=== PATIENT | female | born 1960 | race African-American/Black ===

== ENCOUNTER 2023-01-04 16:52 | Emergency (ER) | payer OTHER ==
[~2023-01-04] VITALS: Ht 154.9 cm; Wt 82.0 kg
[2023-01-04 17:02] VITALS: BP 130/73; PULSE 68; RESP 16; O2SAT 97
[2023-01-04] MEDS ORDERED: ACETAMINOPHEN 325MG TABLET PO ONE (21:45)
[2023-01-04] MEDS ORDERED: T3 PO (21:53)
[2023-01-04 22:06] VITALS: TEMP 98
== END 2023-01-04 22:26 | disposition home or self-care (01) ==
LOC: ER 17:40
DX: S52.501A Unspecified fracture of the lower end of right radius, initial encounter for closed fracture (principal); Z00.00 Encounter for general adult medical examination without abnormal findings; Z98.890 Other specified postprocedural states; W01.0XXA Fall on same level from slipping, tripping and stumbling without subsequent striking against object, initial encounter; Y93.89 Activity, other specified; Y92.89 Other specified places as the place of occurrence of the external cause; Y99.8 Other external cause status
CPT/HCPCS: 29125; 73100; 73120; 99284